=== PATIENT | male | born 1980 | race Caucasian/White ===

== ENCOUNTER 2019-10-06 10:10 | Day surgery (SDC) | payer OTHER ==
[~2019-10-06] VITALS: Ht 185.4 cm; Wt 78.0 kg
[2019-10-06] MEDS ORDERED: CEPH-368 PO (10:45)
[2019-10-06] MEDS ORDERED: ALLEGRA PO (10:45)
[2019-10-06] MEDS: LACTATED RINGERS 1,000 ML IV SCH ×2 (10:51→11:06)
[2019-10-06 10:53] VITALS: BP 125/75
[2019-10-06] MEDS ORDERED: CHLORHEXIDINE 15 ML UDC ONE (10:53)
[2019-10-06] MEDS ORDERED: ACETAMINOPHEN 500 MG TABLET PO ONE (11:00)
[2019-10-06] MEDS ORDERED: PLEASE ENTER HEIGHT AND WEIGHT MC SCH (11:00)
[2019-10-06] MEDS ORDERED: CHLORHEXIDINE 15 ML UDC MM ONE (11:00)
[2019-10-06] MEDS ORDERED: PLEASE ENTER ALLERGIES MC SCH (11:00)
[2019-10-06] MEDS ORDERED: LIDOCAINE-MPF 1%, 5ML ONE (11:03)
[2019-10-06] MEDS ORDERED: BUPIVACAINE/PF 0.5% ONE (11:03)
[2019-10-06] MEDS ORDERED: FENTANYL PF 100 MCG/2ML ONE (11:04)
[2019-10-06] MEDS ORDERED: MIDAZOLAM 1 MG/ML, 2ML ONE (11:04)
[2019-10-06] MEDS ORDERED: EPHEDRINE 50 MG/ML, 1ML IVPush PRN (11:30)
[2019-10-06] MEDS ORDERED: FENTANYL PF 100 MCG/2ML IV PRN (11:30)
[2019-10-06] MEDS ORDERED: MEPERIDINE/PF 25MG/0.5ML IVPush PRN (11:30)
[2019-10-06] MEDS ORDERED: ONDANSETRON 2MG/ML, 2ML IVPush PRN (11:30)
[2019-10-06] MEDS ORDERED: hydrALAzine 20 MG/ML, 1ML IV PRN (11:30)
[2019-10-06] MEDS ORDERED: OXYcodone 5 MG/5 ML ORAL.SOL UDC PO PRN (11:30)
[2019-10-06] MEDS ORDERED: PROMETHAZINE 25 MG/ML, 1ML IVPush PRN (11:30)
[2019-10-06] MEDS ORDERED: LABETALOL 5MG/ML, 20ML IV PRN (11:30)
[2019-10-06] MEDS ORDERED: HYDROmorphone 1 MG/ML, 1ML INJ IVPush PRN (11:30)
[2019-10-06] MEDS ORDERED: PROPOFOL 10 MG/ML, 20ML ONE (11:44)
[2019-10-06] MEDS ORDERED: PROPOFOL 50 ML ONE (11:44)
[2019-10-06] MEDS ORDERED: LIDOCAINE-MPF 2% ,5ML ONE (11:45)
[2019-10-06] MEDS ORDERED: SODIUM CHLORIDE 0.9% PF 10ML ONE (11:47)
[2019-10-06] MEDS ORDERED: CEFAZOLIN 1,000 MG ONE ×2 (11:47)
== END 2019-10-06 13:30 | disposition home or self-care (01) ==
LOC: OUT 10:10
PROVIDERS: ATTEND Orthopaedic Surgery Hand Surgery
DX: S66.323A Laceration of extensor muscle, fascia and tendon of left middle finger at wrist and hand level, initial encounter (principal); Z20.828 Contact with and (suspected) exposure to other viral communicable diseases; Z98.890 Other specified postprocedural states; W31.2XXA Contact with powered woodworking and forming machines, initial encounter; Y93.89 Activity, other specified; Y92.89 Other specified places as the place of occurrence of the external cause; Y99.8 Other external cause status
CPT/HCPCS: 26410; 36415; 87635; J0690; J2250; J2704; J3010; J7120